=== PATIENT | female | born 1965 | race Caucasian/White ===

== ENCOUNTER 2021-09-04 23:24 | Inpatient (IN) | payer MEDICARE, MEDICAID ==
[2021-09-05 00:03] LABS: Actual Bicarbonate (HCO3a) 28.8 mEq/L (22-28); Analyzer IN Cardio ER; Base Excess (BEa) 6.7 mEq/L (-2.0 to +3.0); CO2 Tension 32.8 mmHg (35.0-45.0); Calcium, Ionized (arterial) 1.16 mmol/L (1.12-1.30); Carboxyhemoglobin (COHb) 0.3 gm% (0.0-3.0); Hemoglobin (Hb) 12.4 g/dL (12.0-16.0); O2 Tension (PaO2), arterial 76.6 mmHg (80.0-100.0); Potassium - ABG Lab 4.21 mmol/L (3.70-5.30)
[2021-09-05] MEDS ORDERED: Acetaminophen 500 MG TAB ONE (00:03)
[2021-09-05 00:06] LABS: Puncture Site RBA; pH, Arterial 7.56 (7.35-7.45)
[2021-09-05] MEDS ORDERED: Acetaminophen 650 MG Suppository ONE (00:09)
[2021-09-05 00:48] LABS: Band 28 % (5-11); Hemoglobin 11.4 g/dL (12.0-16.0); Lymphocytes 7 % (21-51); MDiff Complete? YES; Mean Corpuscular HGB CONC 30.4 g/dL (32.0-36.0); Mean Corpuscular Hemoglobin 31.5 pg (27.0-31.0); Mean Platelet Volume 11.4 fL (7.4-10.4); Monocytes 2 % (0-10); Neutrophil 63 % (42-75); Platelet Count 181 thou/uL (130-400); RBC Distribution Width 14.3 % (11.5-14.5); Red Blood Cell (RBC) Count 3.61 mill/uL (4.20-5.40); White Blood Cell (WBC) Count 15.6 thou/uL (4.8-10.8)
[2021-09-05 00:51] LABS: ALT (SGPT) 147 U/L (8-55); AST (SGOT) 46 U/L (5-34); Albumin 3.4 g/dL (3.5-5.0); Alkaline Phosphatase 105 U/L (40-110); Anion Gap 20 mmol/L (10-20); BUN (Urea Nitrogen) 100 mg/dL (9.8-20.1); Bilirubin, Total 0.8 mg/dL (0.2-1.2); Calc. Creatinine Clearance 0 mL/min (70-130); Calcium 9.8 mg/dL (7.8-10.44); Carbon Dioxide 31 mmol/L (22-29); Chloride 101 mmol/L (98-107); Estimated GFR 25; Globulin 4.7 g/dL (2.4-3.5); Potassium 4.3 mmol/L (3.5-5.1); Protein, Total 8.1 g/dL (6.0-8.3); Sodium 148 mmol/L (136-145)
[2021-09-05 00:58] LABS: Glucose 777 mg/dL (70-105)
[2021-09-05] MEDS ORDERED: Meropenem 1 GM in Sodium Chloride 0.9% 100 ML IVPB SCH (01:00)
[2021-09-05] MEDS ORDERED: Dextrose 50% Abboject 50 ML SYRINGE SLOW IVP PRN (01:03)
[2021-09-05] MEDS ORDERED: HumaLOG 300 UNITS/3 ML VIAL SC PRN (01:03)
[2021-09-05] MEDS ORDERED: Dextrose 5% in Water 1,000 ML IV PRN (01:03)
[2021-09-05] MEDS ORDERED: Vancomycin 1.5 GRAM/300 ML BAG 1.5 GM in Premix Bag 1 BAG IVPB SCH (01:30)
[2021-09-05 01:43] LABS: Hemoglobin A1c 7.9 % (4.0-6.0)
[2021-09-05] MEDS: HumaLOG 300 UNITS/3 ML VIAL SC PRN ×4 (02:10→17:09)
[2021-09-05] MEDS ORDERED: Vancomycin HCl 500 MG in Sodium Chloride 0.9% 100 ML IVPB SCH (03:00)
[2021-09-05 03:15] LABS: Lactic Acid 1.9 mmol/L (0.5-2.2)
[2021-09-05] MEDS ORDERED: Sodium Chloride 0.9% 500 ML IV SCH (03:45)
[2021-09-05] MEDS ORDERED: Insulin Regular 300 UNITS/3 ML VIAL IVP SCH (03:45)
[2021-09-05 04:44] LABS: Bilirubin Negative (Negative); Blood, Urine 1+ (Negative); Clarity Turbid (Clear); Glucose, Urine (Dipstick) Greater than 1000 mg/dL (Negative); Ketone, Urine Trace mg/dL (Negative); Leukocyte Negative Leu/uL (Negative); Nitrite Negative (Negative); Protein, Urine (Dipstick) 20 mg/dL (Neg-Trace); RBC/HPF 0-3 HPF (0-3); Specific Gravity, Urine 1.026 (1.002-1.036); Squamous Epithelial 0-3 HPF (0-3); Urobilinogen Normal mg/dL (Less than 2)
[2021-09-05 04:54] LABS: Bacteria/HPF 1+ HPF (None Seen)
[2021-09-05 04:55] LABS: Urine Culture Reflex Yes Yes
[2021-09-05] MEDS ORDERED: Midodrine HCl 5 MG TAB PO PRN (06:46)
[2021-09-05] MEDS ORDERED: Polyvinyl Alcohol 1.4%/Povidone 0.6% Opth Drops EA EYE PRN (09:00)
[2021-09-05] MEDS ORDERED: Famotidine 20 MG TAB PER TUBE SCH ×2 (09:00→09:45)
[2021-09-05] MEDS: Alogliptin 6.25 MG TAB PER TUBE SCH (09:43)
[2021-09-05] MEDS: Modafinil 100 MG TAB PER TUBE SCH ×2 (09:43→21:36)
[2021-09-05] MEDS: FLUoxetine HCl 20 MG/5 ML UDCUP PER TUBE SCH (09:44)
[2021-09-05] MEDS: Heparin 5,000 UNITS/ML VIAL SC SCH ×3 (09:47→21:23)
[2021-09-05] MEDS: Meropenem 1 GM in Sodium Chloride 0.9% 100 ML IVPB SCH ×2 (09:47→21:21)
[2021-09-05] MEDS: Polyethylene Glycol 3350 17 GM Packet PER TUBE SCH (09:47)
[2021-09-05] MEDS: levETIRAcetam 500 MG TAB PER TUBE SCH ×2 (09:47→21:22)
[2021-09-05] MEDS: Insulin Glargine 30 UNITS/0.3 ML VIAL SC SCH ×2 (09:50→21:22)
[2021-09-05] MEDS: Multivits W-Minerals Liquid 15 ML LIQ PER TUBE SCH (09:55)
[2021-09-05] MEDS: Amantadine HCl 10 mg/ml Oral Solution PER TUBE SCH ×2 (09:56→21:22)
[2021-09-05] MEDS: Atorvastatin Calcium 10 MG TAB PER TUBE SCH (10:10)
[2021-09-05] MEDS ORDERED: Lactated Ringer's 1,000 ML IV SCH (10:15)
[2021-09-05] MEDS: Sodium Chloride 0.45% 1,000 ML IV SCH ×2 (10:33→19:59)
[2021-09-05] MEDS ORDERED: Fluconazole 100 MG TAB PER TUBE SCH (14:15)
[2021-09-05] MEDS ORDERED: Midodrine HCl 5 MG TAB PER TUBE PRN (14:15)
[2021-09-05 14:45] LABS: Anion Gap 15 mmol/L (10-20); BUN (Urea Nitrogen) 89 mg/dL (9.8-20.1); Calc. Creatinine Clearance 76 mL/min (70-130); Calcium 9.8 mg/dL (7.8-10.44); Carbon Dioxide 35 mmol/L (22-29); Chloride 107 mmol/L (98-107); Estimated GFR 48; Glucose 303 mg/dL (70-105); Potassium 3.6 mmol/L (3.5-5.1); Sodium 153 mmol/L (136-145)
[2021-09-05] MEDS ORDERED: Lice Shampoo 120 ML BOT TOP SCH (15:30)
[2021-09-05 15:35] LABS: ALT (SGPT) 124 U/L (8-55); AST (SGOT) 50 U/L (5-34); Albumin 3.2 g/dL (3.5-5.0); Alkaline Phosphatase 95 U/L (40-110); Anion Gap 18 mmol/L (10-20); BUN (Urea Nitrogen) 83 mg/dL (9.8-20.1); Bilirubin, Total 0.5 mg/dL (0.2-1.2); Calc. Creatinine Clearance 74 mL/min (70-130); Calcium 9.6 mg/dL (7.8-10.44); Carbon Dioxide 31 mmol/L (22-29); Chloride 109 mmol/L (98-107); Estimated GFR 46; Globulin 4.4 g/dL (2.4-3.5); Glucose 330 mg/dL (70-105); Potassium 3.7 mmol/L (3.5-5.1); Protein, Total 7.6 g/dL (6.0-8.3); Sodium 154 mmol/L (136-145)
[2021-09-05] MEDS: Senokot S 8.6-50 MG TAB PER TUBE SCH (21:22)
[2021-09-06] MEDS: Vancomycin 1 GM in Premix Bag 1 BAG IVPB SCH (00:49)
[2021-09-06] MEDS: HumaLOG 300 UNITS/3 ML VIAL SC PRN ×3 (04:26→16:41)
[2021-09-06 08:36] LABS: Hemoglobin 10.7 g/dL (12.0-16.0); Mean Corpuscular HGB CONC 30.5 g/dL (32.0-36.0); Mean Corpuscular Hemoglobin 32.2 pg (27.0-31.0); Mean Platelet Volume 11.9 fL (7.4-10.4); Platelet Count 125 thou/uL (130-400); RBC Distribution Width 13.7 % (11.5-14.5); Red Blood Cell (RBC) Count 3.31 mill/uL (4.20-5.40); White Blood Cell (WBC) Count 11.5 thou/uL (4.8-10.8)
[2021-09-06] MEDS: Meropenem 1 GM in Sodium Chloride 0.9% 100 ML IVPB SCH ×3 (08:52→23:00)
[2021-09-06] MEDS ORDERED: Famotidine 20 MG TAB PER TUBE SCH (09:00)
[2021-09-06] MEDS: Heparin 5,000 UNITS/ML VIAL SC SCH ×3 (09:13→21:58)
[2021-09-06] MEDS: Fluconazole 100 MG TAB PER TUBE SCH (09:14)
[2021-09-06] MEDS: levETIRAcetam 500 MG TAB PER TUBE SCH ×2 (09:14→21:57)
[2021-09-06] MEDS: Insulin Glargine 30 UNITS/0.3 ML VIAL SC SCH ×3 (09:14→22:21)
[2021-09-06] MEDS: Senokot S 8.6-50 MG TAB PER TUBE SCH ×2 (09:15→21:58)
[2021-09-06] MEDS: Amantadine HCl 10 mg/ml Oral Solution PER TUBE SCH ×2 (09:15→21:57)
[2021-09-06] MEDS: Aspirin Chewable 81 MG TAB PER TUBE SCH (09:15)
[2021-09-06] MEDS: Multivits W-Minerals Liquid 15 ML LIQ PER TUBE SCH (09:15)
[2021-09-06] MEDS: Atorvastatin Calcium 10 MG TAB PER TUBE SCH (09:29)
[2021-09-06] MEDS: Alogliptin 6.25 MG TAB PER TUBE SCH (09:29)
[2021-09-06] MEDS: Polyethylene Glycol 3350 17 GM Packet PER TUBE SCH (09:34)
[2021-09-06] MEDS: Modafinil 100 MG TAB PER TUBE SCH ×2 (09:57→22:19)
[2021-09-06 10:21] LABS: Albumin 3.1 g/dL (3.5-5.0)
[2021-09-06 10:22] LABS: Chloride 109 mmol/L (98-107); Potassium 4.1 mmol/L (3.5-5.1); Sodium 152 mmol/L (136-145)
[2021-09-06 10:23] LABS: Calcium 9.4 mg/dL (7.8-10.44); Glucose 443 mg/dL (70-105)
[2021-09-06 10:24] LABS: Globulin 4.4 g/dL (2.4-3.5); Protein, Total 7.5 g/dL (6.0-8.3)
[2021-09-06 10:25] LABS: Anion Gap 17 mmol/L (10-20); Bilirubin, Total 0.5 mg/dL (0.2-1.2); Carbon Dioxide 30 mmol/L (22-29)
[2021-09-06 10:26] LABS: Alkaline Phosphatase 97 U/L (40-110)
[2021-09-06 10:27] LABS: Calc. Creatinine Clearance 94 mL/min (70-130); Estimated GFR 60; Phosphorus 2.2 mg/dL (2.3-4.7)
[2021-09-06 10:28] LABS: BUN (Urea Nitrogen) 65 mg/dL (9.8-20.1)
[2021-09-06 10:29] LABS: Band 12 % (5-11); Lymphocytes 6 % (21-51); MDiff Complete? YES; Monocytes 4 % (0-10); Neutrophil 78 % (42-75); Platelet Morphology Comment Appears Decreased; Polychromasia SLIGHT = 2-3 cells (100X) (0-2/hpf)
[2021-09-06 10:29] LABS: ALT (SGPT) 270 U/L (8-55); AST (SGOT) 226 U/L (5-34); Magnesium 2.6 mg/dL (1.6-2.6)
[2021-09-06] MEDS: Famotidine 20 MG TAB PER TUBE SCH (21:58)
[2021-09-07 00:51] LABS: Vancomycin, Trough 13.2 ug/mL
[2021-09-07] MEDS: VANCOMYCIN 1.25 GM/250 ML BAG 1.25 GM in Premix Bag 1 BAG IVPB SCH (01:29)
[2021-09-07] MEDS: Vancomycin 1 GM in Premix Bag 1 BAG IVPB SCH (01:30)
[2021-09-07] MEDS: HumaLOG 300 UNITS/3 ML VIAL SC PRN ×4 (02:41→22:08)
[2021-09-07 04:39] LABS: ALT (SGPT) 217 U/L (8-55); AST (SGOT) 105 U/L (5-34); Albumin 2.9 g/dL (3.5-5.0); Alkaline Phosphatase 98 U/L (40-110); Anion Gap 17 mmol/L (10-20); BUN (Urea Nitrogen) 50 mg/dL (9.8-20.1); Bilirubin, Total 0.5 mg/dL (0.2-1.2); Calc. Creatinine Clearance 114 mL/min (70-130); Calcium 9.1 mg/dL (7.8-10.44); Carbon Dioxide 30 mmol/L (22-29); Chloride 109 mmol/L (98-107); Estimated GFR 76; Globulin 3.8 g/dL (2.4-3.5); Glucose 405 mg/dL (70-105); Magnesium 2.4 mg/dL (1.6-2.6); Potassium 3.5 mmol/L (3.5-5.1); Protein, Total 6.7 g/dL (6.0-8.3); Sodium 152 mmol/L (136-145)
[2021-09-07 05:06] LABS: #Eosinphils 0.1 thou/uL (0.0-0.7); #Monocytes 0.4 thou/uL (0.11-0.59); #Neutrophils 4.9 thou/uL (1.40-6.50); %Basophils 0.3 % (0.0-1.0); %Eosinophils 1.9 % (0.0-10.0); %Lymphocytes 15.7 % (21.0-51.0); %Monocytes 5.5 % (0.0-10.0); %Neutrophils 76.6 % (42.0-75.0); Hemoglobin 9.9 g/dL (12.0-16.0); Mean Corpuscular HGB CONC 30.3 g/dL (32.0-36.0); Mean Corpuscular Hemoglobin 31.7 pg (27.0-31.0); Platelet Count 128 thou/uL (130-400); RBC Distribution Width 13.9 % (11.5-14.5); Red Blood Cell (RBC) Count 3.12 mill/uL (4.20-5.40); White Blood Cell (WBC) Count 6.4 thou/uL (4.8-10.8)
[2021-09-07] MEDS: Senokot S 8.6-50 MG TAB PER TUBE SCH ×2 (09:26→21:44)
[2021-09-07] MEDS: Atorvastatin Calcium 10 MG TAB PER TUBE SCH (09:26)
[2021-09-07] MEDS: Heparin 5,000 UNITS/ML VIAL SC SCH ×3 (09:26→22:06)
[2021-09-07] MEDS: Amantadine HCl 10 mg/ml Oral Solution PER TUBE SCH ×2 (09:26→22:06)
[2021-09-07] MEDS: Famotidine 20 MG TAB PER TUBE SCH ×2 (09:26→21:44)
[2021-09-07] MEDS: levETIRAcetam 500 MG TAB PER TUBE SCH ×2 (09:26→21:44)
[2021-09-07] MEDS: Polyethylene Glycol 3350 17 GM Packet PER TUBE SCH (09:27)
[2021-09-07] MEDS: Multivits W-Minerals Liquid 15 ML LIQ PER TUBE SCH (09:27)
[2021-09-07] MEDS: Aspirin Chewable 81 MG TAB PER TUBE SCH (09:27)
[2021-09-07] MEDS: Meropenem 1 GM in Sodium Chloride 0.9% 100 ML IVPB SCH ×3 (09:27→23:04)
[2021-09-07] MEDS: Modafinil 100 MG TAB PER TUBE SCH ×2 (09:37→22:05)
[2021-09-07] MEDS: Insulin Glargine 30 UNITS/0.3 ML VIAL SC SCH ×2 (09:37→21:47)
[2021-09-07] MEDS: Alogliptin 6.25 MG TAB PER TUBE SCH (11:34)
[2021-09-07] MEDS: Fluconazole 100 MG TAB PER TUBE SCH (11:34)
[2021-09-07] MEDS: Acetaminophen 325 MG TAB PER TUBE PRN (21:45)
[2021-09-08] MEDS: VANCOMYCIN 1.25 GM/250 ML BAG 1.25 GM in Premix Bag 1 BAG IVPB SCH (02:17)
[2021-09-08 04:01] LABS: #Eosinphils 0.1 thou/uL (0.0-0.7); #Lymphocytes 1.2 thou/uL (1.20-3.40); #Monocytes 0.5 thou/uL (0.11-0.59); #Neutrophils 4.8 thou/uL (1.40-6.50); %Basophils 0.4 % (0.0-1.0); %Eosinophils 1.2 % (0.0-10.0); %Lymphocytes 18.9 % (21.0-51.0); %Monocytes 6.9 % (0.0-10.0); %Neutrophils 72.6 % (42.0-75.0); Hemoglobin 10.1 g/dL (12.0-16.0); Mean Corpuscular HGB CONC 30.8 g/dL (32.0-36.0); Mean Platelet Volume 11.7 fL (7.4-10.4); Platelet Count 129 thou/uL (130-400); Red Blood Cell (RBC) Count 3.05 mill/uL (4.20-5.40); White Blood Cell (WBC) Count 6.6 thou/uL (4.8-10.8)
[2021-09-08 04:09] LABS: Anion Gap 11 mmol/L (10-20); BUN (Urea Nitrogen) 50 mg/dL (9.8-20.1); Calc. Creatinine Clearance 109 mL/min (70-130); Calcium 9.1 mg/dL (7.8-10.44); Carbon Dioxide 37 mmol/L (22-29); Chloride 110 mmol/L (98-107); Estimated GFR 71; Glucose 381 mg/dL (70-105); Sodium 154 mmol/L (136-145)
[2021-09-08] MEDS: HumaLOG 300 UNITS/3 ML VIAL SC PRN ×3 (04:58→14:27)
[2021-09-08] MEDS ORDERED: Insulin Glargine 30 UNITS/0.3 ML VIAL SC SCH (09:00)
[2021-09-08] MEDS: Meropenem 1 GM in Sodium Chloride 0.9% 100 ML IVPB SCH ×2 (09:57→15:32)
[2021-09-08] MEDS: Alogliptin 6.25 MG TAB PER TUBE SCH (09:57)
[2021-09-08] MEDS: Aspirin Chewable 81 MG TAB PER TUBE SCH (09:58)
[2021-09-08] MEDS: Fluconazole 100 MG TAB PER TUBE SCH (09:58)
[2021-09-08] MEDS: Senokot S 8.6-50 MG TAB PER TUBE SCH ×2 (09:58→20:53)
[2021-09-08] MEDS: Heparin 5,000 UNITS/ML VIAL SC SCH ×3 (09:58→20:52)
[2021-09-08] MEDS: levETIRAcetam 500 MG TAB PER TUBE SCH ×2 (09:58→20:53)
[2021-09-08] MEDS: Atorvastatin Calcium 10 MG TAB PER TUBE SCH (09:58)
[2021-09-08] MEDS: Famotidine 20 MG TAB PER TUBE SCH ×2 (09:58→20:53)
[2021-09-08] MEDS: Polyethylene Glycol 3350 17 GM Packet PER TUBE SCH (09:59)
[2021-09-08] MEDS: Modafinil 100 MG TAB PER TUBE SCH ×2 (10:20→21:08)
[2021-09-08] MEDS: Amantadine HCl 10 mg/ml Oral Solution PER TUBE SCH ×2 (10:20→21:09)
[2021-09-08] MEDS: Multivits W-Minerals Liquid 15 ML LIQ PER TUBE SCH (10:20)
[2021-09-08] MEDS: FLUoxetine HCl 20 MG/5 ML UDCUP PER TUBE SCH (10:21)
[2021-09-08] MEDS: Insulin Glargine 30 UNITS/0.3 ML VIAL SC SCH ×2 (10:27→21:17)
[2021-09-08] MEDS: Dextrose 5% in Water 1,000 ML IV SCH ×4 (13:13→20:51)
[2021-09-08] MEDS: Acetaminophen 325 MG TAB PER TUBE PRN (20:52)
[2021-09-09] MEDS: Dextrose 5% in Water 1,000 ML IV SCH ×3 (00:04→05:45)
[2021-09-09] MEDS: Meropenem 1 GM in Sodium Chloride 0.9% 100 ML IVPB SCH ×4 (00:04→23:41)
[2021-09-09] MEDS: HumaLOG 300 UNITS/3 ML VIAL SC PRN ×3 (00:05→13:37)
[2021-09-09 01:39] LABS: Vancomycin, Trough 13.8 ug/mL
[2021-09-09] MEDS: VANCOMYCIN 1.25 GM/250 ML BAG 1.25 GM in Premix Bag 1 BAG IVPB SCH (02:56)
[2021-09-09 07:00] LABS: Anion Gap 14 mmol/L (10-20); BUN (Urea Nitrogen) 41 mg/dL (9.8-20.1); Calc. Creatinine Clearance 136 mL/min (70-130); Calcium 9.2 mg/dL (7.8-10.44); Carbon Dioxide 32 mmol/L (22-29); Chloride 110 mmol/L (98-107); Estimated GFR 87; Glucose 218 mg/dL (70-105); Potassium 3.8 mmol/L (3.5-5.1); Sodium 152 mmol/L (136-145)
[2021-09-09 07:04] LABS: Hemoglobin 10.1 g/dL (12.0-16.0); Mean Corpuscular HGB CONC 30.4 g/dL (32.0-36.0); Mean Platelet Volume 11.6 fL (7.4-10.4); Platelet Count 131 thou/uL (130-400); RBC Distribution Width 14.5 % (11.5-14.5); Red Blood Cell (RBC) Count 3.14 mill/uL (4.20-5.40); White Blood Cell (WBC) Count 10.5 thou/uL (4.8-10.8)
[2021-09-09] MEDS: Insulin Glargine 30 UNITS/0.3 ML VIAL SC SCH ×2 (08:26→23:40)
[2021-09-09] MEDS: FLUoxetine HCl 20 MG/5 ML UDCUP PER TUBE SCH (08:26)
[2021-09-09] MEDS: Heparin 5,000 UNITS/ML VIAL SC SCH ×3 (08:26→21:42)
[2021-09-09] MEDS: Aspirin Chewable 81 MG TAB PER TUBE SCH (08:26)
[2021-09-09] MEDS: Alogliptin 6.25 MG TAB PER TUBE SCH (08:26)
[2021-09-09] MEDS: levETIRAcetam 500 MG TAB PER TUBE SCH ×2 (08:27→21:43)
[2021-09-09] MEDS: Famotidine 20 MG TAB PER TUBE SCH ×2 (08:27→21:43)
[2021-09-09] MEDS: Atorvastatin Calcium 10 MG TAB PER TUBE SCH (08:27)
[2021-09-09] MEDS: Fluconazole 100 MG TAB PER TUBE SCH (08:27)
[2021-09-09] MEDS: Polyethylene Glycol 3350 17 GM Packet PER TUBE SCH (08:28)
[2021-09-09] MEDS: Senokot S 8.6-50 MG TAB PER TUBE SCH ×2 (08:28→21:43)
[2021-09-09 09:02] LABS: Band 10 % (5-11); Lymphocytes 18 % (21-51); MDiff Complete? YES; Metamyelocyte 1 % (0-0); Monocytes 4 % (0-10); Neutrophil 67 % (42-75); Nucleated RBC 1 % (0); Platelet Morphology Comment Appears Adequate; Polychromasia SLIGHT = 2-3 cells (100X) (0-2/hpf)
[2021-09-09] MEDS: Multivits W-Minerals Liquid 15 ML LIQ PER TUBE SCH (12:28)
[2021-09-09] MEDS: Amantadine HCl 10 mg/ml Oral Solution PER TUBE SCH ×2 (12:28→21:43)
[2021-09-09] MEDS: Modafinil 100 MG TAB PER TUBE SCH ×3 (12:28→22:02)
[2021-09-09] MEDS: Vancomycin 1 GM in Premix Bag 1 BAG IVPB SCH (13:37)
[2021-09-09] MEDS: Lactated Ringer's 1,000 ML IV SCH (17:30)
[2021-09-10] MEDS: Vancomycin 1 GM in Premix Bag 1 BAG IVPB SCH ×3 (03:30→15:20)
[2021-09-10] MEDS: Lactated Ringer's 1,000 ML IV SCH (06:02)
[2021-09-10 06:26] LABS: Anion Gap 14 mmol/L (10-20); BUN (Urea Nitrogen) 29 mg/dL (9.8-20.1); Calc. Creatinine Clearance 136 mL/min (70-130); Calcium 8.7 mg/dL (7.8-10.44); Carbon Dioxide 29 mmol/L (22-29); Chloride 107 mmol/L (98-107); Estimated GFR 87; Glucose 328 mg/dL (70-105); Potassium 4.4 mmol/L (3.5-5.1); Sodium 146 mmol/L (136-145)
[2021-09-10 06:35] LABS: Band 3 % (5-11); Elliptocytes SLIGHT = 2-5 cells (100X) (0-1/hpf); Eosinophils 1 % (0-10); Hemoglobin 9.3 g/dL (12.0-16.0); Hypochromia SLIGHT = 6-15 cells (100X) (0-5/hpf); Lymphocytes 23 % (21-51); MDiff Complete? YES; Macrocytosis MODERATE=16-30 cells (100X) (0-5/hpf); Mean Corpuscular HGB CONC 31.2 g/dL (32.0-36.0); Mean Corpuscular Hemoglobin 32.4 pg (27.0-31.0); Mean Platelet Volume 11.2 fL (7.4-10.4); Monocytes 4 % (0-10); Myelocyte 4 % (0-0); Neutrophil 65 % (42-75); Ovalocytes SLIGHT = 2-5 cells (100X) (0-1/hpf); Platelet Count 119 thou/uL (130-400); Platelet Morphology Comment Appears Decreased; Polychromasia SLIGHT = 2-3 cells (100X) (0-2/hpf); RBC Distribution Width 14.4 % (11.5-14.5); Red Blood Cell (RBC) Count 2.87 mill/uL (4.20-5.40); White Blood Cell (WBC) Count 7.7 thou/uL (4.8-10.8)
[2021-09-10] MEDS: Multivits W-Minerals Liquid 15 ML LIQ PER TUBE SCH (08:29)
[2021-09-10] MEDS: Fluconazole 100 MG TAB PER TUBE SCH (08:30)
[2021-09-10] MEDS: levETIRAcetam 500 MG TAB PER TUBE SCH ×2 (08:30→21:59)
[2021-09-10] MEDS: Meropenem 1 GM in Sodium Chloride 0.9% 100 ML IVPB SCH ×2 (08:30→16:52)
[2021-09-10] MEDS: Heparin 5,000 UNITS/ML VIAL SC SCH ×3 (08:30→21:49)
[2021-09-10] MEDS: Aspirin Chewable 81 MG TAB PER TUBE SCH (08:30)
[2021-09-10] MEDS: Alogliptin 6.25 MG TAB PER TUBE SCH (08:30)
[2021-09-10] MEDS: Famotidine 20 MG TAB PER TUBE SCH ×2 (08:30→21:59)
[2021-09-10] MEDS: Atorvastatin Calcium 10 MG TAB PER TUBE SCH (08:30)
[2021-09-10] MEDS: FLUoxetine HCl 20 MG/5 ML UDCUP PER TUBE SCH (08:30)
[2021-09-10] MEDS: Polyethylene Glycol 3350 17 GM Packet PER TUBE SCH (08:31)
[2021-09-10] MEDS: Senokot S 8.6-50 MG TAB PER TUBE SCH ×2 (08:31→22:00)
[2021-09-10] MEDS: Insulin Glargine 30 UNITS/0.3 ML VIAL SC SCH ×2 (09:59→21:59)
[2021-09-10] MEDS: Modafinil 100 MG TAB PER TUBE SCH ×2 (12:33→21:59)
[2021-09-10] MEDS: HumaLOG 300 UNITS/3 ML VIAL SC PRN ×2 (12:33→17:17)
[2021-09-10 13:12] VITALS: BMI 42.0
[2021-09-10] MEDS: Amantadine HCl 10 mg/ml Oral Solution PER TUBE SCH ×2 (15:18→22:00)
[2021-09-11] MEDS: Meropenem 1 GM in Sodium Chloride 0.9% 100 ML IVPB SCH ×2 (00:27→09:16)
[2021-09-11] MEDS: Vancomycin 1 GM in Premix Bag 1 BAG IVPB SCH (04:00)
[2021-09-11] MEDS: HumaLOG 300 UNITS/3 ML VIAL SC PRN ×2 (06:33→12:35)
[2021-09-11 06:50] LABS: Anion Gap 14 mmol/L (10-20); BUN (Urea Nitrogen) 19 mg/dL (9.8-20.1); Calc. Creatinine Clearance 152 mL/min (70-130); Carbon Dioxide 30 mmol/L (22-29); Chloride 106 mmol/L (98-107); Estimated GFR 100; Glucose 214 mg/dL (70-105); Potassium 4.1 mmol/L (3.5-5.1); Sodium 146 mmol/L (136-145)
[2021-09-11 07:20] LABS: #Eosinphils 0.4 thou/uL (0.0-0.7); #Lymphocytes 1.5 thou/uL (1.20-3.40); #Monocytes 0.6 thou/uL (0.11-0.59); #Neutrophils 4.3 thou/uL (1.40-6.50); %Basophils 0.6 % (0.0-1.0); %Lymphocytes 22.4 % (21.0-51.0); %Monocytes 8.7 % (0.0-10.0); %Neutrophils 62.3 % (42.0-75.0); Hemoglobin 9.4 g/dL (12.0-16.0); Mean Corpuscular HGB CONC 31.3 g/dL (32.0-36.0); Mean Corpuscular Hemoglobin 32.4 pg (27.0-31.0); Platelet Count 133 thou/uL (130-400); RBC Distribution Width 14.9 % (11.5-14.5); Red Blood Cell (RBC) Count 2.91 mill/uL (4.20-5.40); White Blood Cell (WBC) Count 6.9 thou/uL (4.8-10.8)
[2021-09-11] MEDS: Multivits W-Minerals Liquid 15 ML LIQ PER TUBE SCH (09:16)
[2021-09-11] MEDS: Polyethylene Glycol 3350 17 GM Packet PER TUBE SCH (09:17)
[2021-09-11] MEDS: Amantadine HCl 10 mg/ml Oral Solution PER TUBE SCH ×2 (09:17→21:45)
[2021-09-11] MEDS: Insulin Glargine 30 UNITS/0.3 ML VIAL SC SCH ×2 (09:18→21:41)
[2021-09-11] MEDS: Senokot S 8.6-50 MG TAB PER TUBE SCH ×2 (09:19→21:40)
[2021-09-11] MEDS: Heparin 5,000 UNITS/ML VIAL SC SCH ×3 (09:19→21:40)
[2021-09-11] MEDS: Fluconazole 100 MG TAB PER TUBE SCH (09:20)
[2021-09-11] MEDS: Atorvastatin Calcium 10 MG TAB PER TUBE SCH (09:20)
[2021-09-11] MEDS: Aspirin Chewable 81 MG TAB PER TUBE SCH (09:20)
[2021-09-11] MEDS: Famotidine 20 MG TAB PER TUBE SCH ×2 (09:20→21:40)
[2021-09-11] MEDS: Alogliptin 6.25 MG TAB PER TUBE SCH (09:20)
[2021-09-11] MEDS: FLUoxetine HCl 20 MG/5 ML UDCUP PER TUBE SCH (09:21)
[2021-09-11] MEDS: levETIRAcetam 500 MG TAB PER TUBE SCH (11:11)
[2021-09-11] MEDS: Modafinil 100 MG TAB PER TUBE SCH ×2 (12:24→21:41)
[2021-09-11] MEDS: levETIRAcetam 500 mg/5 ml Oral Solution PER TUBE SCH ×2 (12:24→21:40)
[2021-09-11 15:02] LABS: Vancomycin, Trough 21.5 ug/mL
[2021-09-11] MEDS: Cefdinir 300 MG CAP PO SCH (21:40)
[2021-09-12] MEDS: HumaLOG 300 UNITS/3 ML VIAL SC PRN ×3 (05:34→17:37)
[2021-09-12 07:50] LABS: #Eosinphils 0.2 thou/uL (0.0-0.7); #Lymphocytes 1.4 thou/uL (1.20-3.40); #Monocytes 0.5 thou/uL (0.11-0.59); #Neutrophils 4.8 thou/uL (1.40-6.50); %Basophils 0.3 % (0.0-1.0); %Lymphocytes 20.3 % (21.0-51.0); %Monocytes 6.7 % (0.0-10.0); %Neutrophils 69.7 % (42.0-75.0); Hemoglobin 10.1 g/dL (12.0-16.0); Mean Corpuscular HGB CONC 31.6 g/dL (32.0-36.0); Mean Corpuscular Hemoglobin 32.7 pg (27.0-31.0); Mean Platelet Volume 11.3 fL (7.4-10.4); Platelet Count 148 thou/uL (130-400); RBC Distribution Width 15.3 % (11.5-14.5); White Blood Cell (WBC) Count 6.9 thou/uL (4.8-10.8)
[2021-09-12 08:07] LABS: Anion Gap 16 mmol/L (10-20); BUN (Urea Nitrogen) 21 mg/dL (9.8-20.1); Calc. Creatinine Clearance 145 mL/min (70-130); Calcium 9.3 mg/dL (7.8-10.44); Carbon Dioxide 27 mmol/L (22-29); Chloride 104 mmol/L (98-107); Estimated GFR 94; Glucose 213 mg/dL (70-105); Potassium 4.6 mmol/L (3.5-5.1); Sodium 142 mmol/L (136-145)
[2021-09-12] MEDS ORDERED: Furosemide 40 MG/4 ML VIAL SLOW IVP SCH (09:15)
[2021-09-12] MEDS: Multivits W-Minerals Liquid 15 ML LIQ PER TUBE SCH (09:34)
[2021-09-12] MEDS: Polyethylene Glycol 3350 17 GM Packet PER TUBE SCH (09:34)
[2021-09-12] MEDS: Amantadine HCl 10 mg/ml Oral Solution PER TUBE SCH ×2 (09:34→21:52)
[2021-09-12] MEDS: Alogliptin 6.25 MG TAB PER TUBE SCH (09:35)
[2021-09-12] MEDS: levETIRAcetam 500 mg/5 ml Oral Solution PER TUBE SCH ×2 (09:35→21:52)
[2021-09-12] MEDS: Aspirin Chewable 81 MG TAB PER TUBE SCH (09:35)
[2021-09-12] MEDS: Senokot S 8.6-50 MG TAB PER TUBE SCH ×2 (09:35→21:53)
[2021-09-12] MEDS: FLUoxetine HCl 20 MG/5 ML UDCUP PER TUBE SCH (09:35)
[2021-09-12] MEDS: Heparin 5,000 UNITS/ML VIAL SC SCH ×3 (09:36→21:52)
[2021-09-12] MEDS: Cefdinir 300 MG CAP PO SCH ×2 (09:36→21:52)
[2021-09-12] MEDS: Famotidine 20 MG TAB PER TUBE SCH ×2 (09:36→21:52)
[2021-09-12] MEDS: Atorvastatin Calcium 10 MG TAB PER TUBE SCH (09:36)
[2021-09-12] MEDS: Insulin Glargine 30 UNITS/0.3 ML VIAL SC SCH ×2 (09:37→21:52)
[2021-09-12] MEDS: Modafinil 100 MG TAB PER TUBE SCH ×2 (09:38→21:52)
[2021-09-13] MEDS: Furosemide 40 MG/4 ML VIAL SLOW IVP SCH ×2 (05:45→14:54)
[2021-09-13 06:52] LABS: #Eosinphils 0.1 thou/uL (0.0-0.7); #Lymphocytes 1.8 thou/uL (1.20-3.40); #Monocytes 0.5 thou/uL (0.11-0.59); #Neutrophils 5.3 thou/uL (1.40-6.50); %Basophils 0.1 % (0.0-1.0); %Eosinophils 1.6 % (0.0-10.0); %Lymphocytes 23.6 % (21.0-51.0); %Monocytes 5.8 % (0.0-10.0); %Neutrophils 68.8 % (42.0-75.0); Hemoglobin 10.8 g/dL (12.0-16.0); Mean Corpuscular HGB CONC 30.9 g/dL (32.0-36.0); Mean Platelet Volume 11.2 fL (7.4-10.4); Platelet Count 176 thou/uL (130-400); RBC Distribution Width 16.1 % (11.5-14.5); Red Blood Cell (RBC) Count 3.37 mill/uL (4.20-5.40); White Blood Cell (WBC) Count 7.8 thou/uL (4.8-10.8)
[2021-09-13 07:03] LABS: Anion Gap 18 mmol/L (10-20); BUN (Urea Nitrogen) 23 mg/dL (9.8-20.1); Calc. Creatinine Clearance 138 mL/min (70-130); Calcium 9.6 mg/dL (7.8-10.44); Carbon Dioxide 27 mmol/L (22-29); Chloride 100 mmol/L (98-107); Estimated GFR 88; Glucose 200 mg/dL (70-105); Potassium 4.7 mmol/L (3.5-5.1); Sodium 140 mmol/L (136-145)
[2021-09-13] MEDS: Polyethylene Glycol 3350 17 GM Packet PER TUBE SCH (09:08)
[2021-09-13] MEDS: Senokot S 8.6-50 MG TAB PER TUBE SCH ×2 (09:09→20:52)
[2021-09-13] MEDS: Multivits W-Minerals Liquid 15 ML LIQ PER TUBE SCH (09:09)
[2021-09-13] MEDS: levETIRAcetam 500 mg/5 ml Oral Solution PER TUBE SCH ×2 (09:09→20:52)
[2021-09-13] MEDS: Amantadine HCl 10 mg/ml Oral Solution PER TUBE SCH ×2 (09:09→20:52)
[2021-09-13] MEDS: Alogliptin 6.25 MG TAB PER TUBE SCH (09:09)
[2021-09-13] MEDS: Aspirin Chewable 81 MG TAB PER TUBE SCH (09:09)
[2021-09-13] MEDS: Modafinil 100 MG TAB PER TUBE SCH ×2 (09:10→20:52)
[2021-09-13] MEDS: Cefdinir 300 MG CAP PO SCH ×2 (09:10→20:52)
[2021-09-13] MEDS: FLUoxetine HCl 20 MG/5 ML UDCUP PER TUBE SCH (09:10)
[2021-09-13] MEDS: Insulin Glargine 30 UNITS/0.3 ML VIAL SC SCH ×2 (09:10→20:53)
[2021-09-13] MEDS: Famotidine 20 MG TAB PER TUBE SCH ×2 (09:10→20:52)
[2021-09-13] MEDS: Atorvastatin Calcium 10 MG TAB PER TUBE SCH (09:10)
[2021-09-13] MEDS: Heparin 5,000 UNITS/ML VIAL SC SCH ×3 (09:11→20:53)
[2021-09-13] MEDS: HumaLOG 300 UNITS/3 ML VIAL SC PRN ×2 (12:30→17:51)
[2021-09-14] MEDS: Furosemide 40 MG/4 ML VIAL SLOW IVP SCH (06:12)
[2021-09-14 07:12] LABS: #Eosinphils 0.2 thou/uL (0.0-0.7); #Lymphocytes 1.9 thou/uL (1.20-3.40); #Monocytes 0.5 thou/uL (0.11-0.59); %Basophils 0.3 % (0.0-1.0); %Eosinophils 1.7 % (0.0-10.0); %Lymphocytes 19.7 % (21.0-51.0); %Monocytes 5.2 % (0.0-10.0); %Neutrophils 73.2 % (42.0-75.0); Hemoglobin 10.7 g/dL (12.0-16.0); Mean Corpuscular Hemoglobin 31.9 pg (27.0-31.0); Mean Platelet Volume 10.8 fL (7.4-10.4); Platelet Count 174 thou/uL (130-400); RBC Distribution Width 15.6 % (11.5-14.5); Red Blood Cell (RBC) Count 3.33 mill/uL (4.20-5.40); White Blood Cell (WBC) Count 9.6 thou/uL (4.8-10.8)
[2021-09-14 07:29] LABS: Anion Gap 14 mmol/L (10-20); BUN (Urea Nitrogen) 26 mg/dL (9.8-20.1); Calc. Creatinine Clearance 136 mL/min (70-130); Calcium 9.4 mg/dL (7.8-10.44); Carbon Dioxide 31 mmol/L (22-29); Chloride 98 mmol/L (98-107); Estimated GFR 87; Glucose 148 mg/dL (70-105); Potassium 4.3 mmol/L (3.5-5.1); Sodium 139 mmol/L (136-145)
[2021-09-14] MEDS: Alogliptin 6.25 MG TAB PER TUBE SCH (09:45)
[2021-09-14] MEDS: Amantadine HCl 10 mg/ml Oral Solution PER TUBE SCH ×2 (09:45→22:03)
[2021-09-14] MEDS: Famotidine 20 MG TAB PER TUBE SCH ×2 (09:46→22:01)
[2021-09-14] MEDS: FLUoxetine HCl 20 MG/5 ML UDCUP PER TUBE SCH (09:46)
[2021-09-14] MEDS: Aspirin Chewable 81 MG TAB PER TUBE SCH (09:46)
[2021-09-14] MEDS: Cefdinir 300 MG CAP PO SCH ×2 (09:46→22:02)
[2021-09-14] MEDS: Atorvastatin Calcium 10 MG TAB PER TUBE SCH (09:46)
[2021-09-14] MEDS: Heparin 5,000 UNITS/ML VIAL SC SCH ×3 (09:46→22:12)
[2021-09-14] MEDS: Insulin Glargine 30 UNITS/0.3 ML VIAL SC SCH ×2 (09:47→22:03)
[2021-09-14] MEDS: Multivits W-Minerals Liquid 15 ML LIQ PER TUBE SCH (09:48)
[2021-09-14] MEDS: Modafinil 100 MG TAB PER TUBE SCH ×2 (09:48→22:02)
[2021-09-14] MEDS: Senokot S 8.6-50 MG TAB PER TUBE SCH ×2 (09:48→22:02)
[2021-09-14] MEDS: levETIRAcetam 500 mg/5 ml Oral Solution PER TUBE SCH ×2 (09:48→22:02)
[2021-09-14] MEDS: Polyethylene Glycol 3350 17 GM Packet PER TUBE SCH (09:48)
[2021-09-15] MEDS: HumaLOG 300 UNITS/3 ML VIAL SC PRN (06:31)
[2021-09-15 06:48] LABS: #Eosinphils 0.1 thou/uL (0.0-0.7); #Lymphocytes 2.1 thou/uL (1.20-3.40); #Monocytes 0.5 thou/uL (0.11-0.59); #Neutrophils 7.8 thou/uL (1.40-6.50); %Basophils 0.2 % (0.0-1.0); %Monocytes 4.9 % (0.0-10.0); Hemoglobin 10.5 g/dL (12.0-16.0); Mean Corpuscular HGB CONC 31.6 g/dL (32.0-36.0); Mean Corpuscular Hemoglobin 32.4 pg (27.0-31.0); Mean Platelet Volume 10.5 fL (7.4-10.4); Platelet Count 189 thou/uL (130-400); RBC Distribution Width 15.7 % (11.5-14.5); Red Blood Cell (RBC) Count 3.25 mill/uL (4.20-5.40); White Blood Cell (WBC) Count 10.6 thou/uL (4.8-10.8)
[2021-09-15 07:10] LABS: Anion Gap 15 mmol/L (10-20); BUN (Urea Nitrogen) 25 mg/dL (9.8-20.1); Calc. Creatinine Clearance 133 mL/min (70-130); Calcium 9.4 mg/dL (7.8-10.44); Carbon Dioxide 30 mmol/L (22-29); Chloride 97 mmol/L (98-107); Estimated GFR 88; Glucose 163 mg/dL (70-105); Potassium 4.2 mmol/L (3.5-5.1); Sodium 138 mmol/L (136-145)
[2021-09-15] MEDS ORDERED: Furosemide 40 MG/4 ML VIAL SLOW IVP SCH (08:00)
[2021-09-15 08:34] VITALS: BP 112/62; TEMP 98.1
[2021-09-15] MEDS: Heparin 5,000 UNITS/ML VIAL SC SCH (09:32)
[2021-09-15] MEDS: Senokot S 8.6-50 MG TAB PER TUBE SCH (09:32)
[2021-09-15] MEDS: Polyethylene Glycol 3350 17 GM Packet PER TUBE SCH (09:32)
[2021-09-15] MEDS: Alogliptin 6.25 MG TAB PER TUBE SCH (09:33)
[2021-09-15] MEDS: FLUoxetine HCl 20 MG/5 ML UDCUP PER TUBE SCH (09:33)
[2021-09-15] MEDS: Cefdinir 300 MG CAP PO SCH (09:33)
[2021-09-15] MEDS: Modafinil 100 MG TAB PER TUBE SCH (09:33)
[2021-09-15] MEDS: Atorvastatin Calcium 10 MG TAB PER TUBE SCH (09:33)
[2021-09-15] MEDS: Famotidine 20 MG TAB PER TUBE SCH (09:33)
[2021-09-15] MEDS: Aspirin Chewable 81 MG TAB PER TUBE SCH (09:33)
[2021-09-15] MEDS: Multivits W-Minerals Liquid 15 ML LIQ PER TUBE SCH (09:33)
[2021-09-15] MEDS: Amantadine HCl 10 mg/ml Oral Solution PER TUBE SCH (09:33)
[2021-09-15] MEDS: levETIRAcetam 500 mg/5 ml Oral Solution PER TUBE SCH (09:33)
[2021-09-15] MEDS: Insulin Glargine 30 UNITS/0.3 ML VIAL SC SCH (09:34)
== END 2021-09-15 11:05 | DRG 871 ==
LOC: ERS 23:24 → CCU 09-05 00:11 → IMCU/EMU 09-06 19:50 → T4-B 09-08 11:31
PROVIDERS: ADMIT Internal Medicine; ATTEND Internal Medicine
PROC: 3E03329 Introduction of Other Anti-infective into Peripheral Vein, Percutaneous Approach (ICD-10-PCS; principal; 2021-09-05)
PROC: 5A1935Z Respiratory Ventilation, Less than 24 Consecutive Hours (ICD-10-PCS; 2021-09-05)
DX: A41.9 Sepsis, unspecified organism (principal); R65.20 Severe sepsis without septic shock; Z20.822 Contact with and (suspected) exposure to COVID-19; J96.21 Acute and chronic respiratory failure with hypoxia; J18.9 Pneumonia, unspecified organism; G93.41 Metabolic encephalopathy; R53.2 Functional quadriplegia; N17.9 Acute kidney failure, unspecified; G93.1 Anoxic brain damage, not elsewhere classified; E87.3 Alkalosis; E87.0 Hyperosmolality and hypernatremia; I50.32 Chronic diastolic (congestive) heart failure; E11.65 Type 2 diabetes mellitus with hyperglycemia; G40.909 Epilepsy, unspecified, not intractable, without status epilepticus; I25.10 Atherosclerotic heart disease of native coronary artery without angina pectoris; E78.5 Hyperlipidemia, unspecified; K21.9 Gastro-esophageal reflux disease without esophagitis; E11.51 Type 2 diabetes mellitus with diabetic peripheral angiopathy without gangrene; E86.9 Volume depletion, unspecified; R74.01 Elevation of levels of liver transaminase levels; R82.81 Pyuria; Y95 Nosocomial condition; B37.3 Candidiasis of vulva and vagina; L98.8 Other specified disorders of the skin and subcutaneous tissue; I11.0 Hypertensive heart disease with heart failure; B85.2 Pediculosis, unspecified; E86.0 Dehydration; Z86.74 Personal history of sudden cardiac arrest; Z78.1 Physical restraint status; Z88.1 Allergy status to other antibiotic agents; Z88.2 Allergy status to sulfonamides; Z93.0 Tracheostomy status; Z79.899 Other long term (current) drug therapy; Z79.4 Long term (current) use of insulin; Z79.84 Long term (current) use of oral hypoglycemic drugs; Z89.511 Acquired absence of right leg below knee; Z93.1 Gastrostomy status; Z89.611 Acquired absence of right leg above knee; Z74.01 Bed confinement status
CPT/HCPCS: 36415; 36416; 36600; 71045; 80048; 80053; 80202; 81001; 82805; 83036; 83605; 83735; 83880; 84100; 84145; 85025; 87070; 87086; 87205; 93005; 94002; 94003; 94640; 94760; 96374; 97139; J1644; J1815; J1940; J2185; J3370; J3490; J7030; J7070; J7120; J7620